=== PATIENT | female | born 1990 | race Caucasian/White ===

== ENCOUNTER → 2022-05-13 | Outpatient (CLI) | payer MEDICAID ==
--- NOTE | 2022-05-13 10:41 | Diagnostic Imaging Report ---
INDICATION: survey. TECHNIQUE: Multiple real-time grayscale images were obtained over the gravid uterus. COMPARISON: None FINDINGS: There is a single live fetus in transverse presentation, head to maternal right. heart rate was recorded at 158 bpm. Placenta is anterior and low lying with the tip of the placenta approximately 2.8 cm from the internal cervical os. Cervical length is 5.7 cm. kidneys, bladder and stomach are unremarkable. brain is unremarkable. There is a four-chamber heart. There is a three-vessel cord with normal insertion. spine evaluation is somewhat limited due to position. Biometrical measurements are as follows: Biparietal 4.53 cm, age 19 weeks 5 days. Head circumference 17.41 cm, age 20 weeks 0 days. Abdominal circumference 15.63 cm, age 20 weeks 6 days. Femur length 3.48 cm, age 21 weeks 0 days. Sonographic estimate age: 20 weeks 3 days. Sonographic estimated date of delivery: 09/27/2022. Estimated Weight: 374 gm (+/- 55 gm). LMP percentile: 85%. heart rate: 158 beats per minute. number: 1 of 1. IMPRESSION: 1. Single live IUP, 20 weeks 3 days gestational age. Estimated date of confinement sonographically is 09/27/2022. 2. Low-lying placenta. 3. Unremarkable survey although spine evaluation is somewhat limited due to position. Dictated by: Dictated on workstation # [id number]
== END ==
LOC: RAD FS 09:07
PROVIDERS: ATTEND Obstetrics & Gynecology
DX: O44.42 Low lying placenta NOS or without hemorrhage, second trimester (principal); Z36.9 Encounter for antenatal screening, unspecified; Z3A.20 20 weeks gestation of pregnancy
CPT/HCPCS: 76805

== ENCOUNTER 2022-08-02 20:36 | Outpatient (CLI) | payer MEDICAID ==
[~2022-08-02] VITALS: Ht 165.1 cm; Wt 92.6 kg
[2022-08-02 21:24] VITALS: BP 121/70
[2022-08-02 21:26] VITALS: BP 121/70
[2022-08-03] MEDS ORDERED: PREN1COM15 PO (01:52)
--- NOTE | 2022-08-03 08:40 | Physician Query-Final Dx ---
HECTOR,08/03/22 0840: Clinic Account Progress/Dx Physician Query: Please give diagnosis Please include # weeks gestation Date of Service Aug 02, 2022 at 20:36 SHIMON HALE MD 08/03/22 1923: Clinic Account Progress/Dx DIAGNOSIS: Diagnosis 32 weeks with false labor ,NovAug 03, 2022 08:40 SHIMON HALE MD Aug 03, 2022 19:23
== END 2022-08-03 02:00 | disposition home or self-care (01) ==
LOC: LDRP 20:36 → WSo 20:36
PROVIDERS: ATTEND Obstetrics & Gynecology
DX: O47.03 False labor before 37 completed weeks of gestation, third trimester (principal); Z3A.32 32 weeks gestation of pregnancy
CPT/HCPCS: 99213

== ENCOUNTER 2022-08-27 21:23 | Outpatient (CLI) | payer BC, MEDICAID ==
[~2022-08-27] VITALS: Ht 162.5 cm; Wt 95.2 kg
[~2022-08-27 21:23] MED LIST: PREN1COM15 PO
[2022-08-27] MEDS ORDERED: D5 LR IV SOLUTION 1,000 ML IV ONE (21:55)
[2022-08-27] MEDS ORDERED: D5 LR IV SOLUTION 1,000 ML IV SCH (22:00)
[2022-08-27 22:01] LABS: BILIRUBIN,URINE NEGATIVE (NEGATIVE); CLARITY,URINE CLEAR; COLOR,URINE YELLOW; GLUCOSE, URINE (UA) NEGATIVE (NEGATIVE); KETONES,URINE NEGATIVE (NEGATIVE); LEUKOCYTE ESTERASE ,URINE 3+ (NEGATIVE); NITRITE,URINE NEGATIVE (NEGATIVE); PROTEIN,URINE NEGATIVE (NEGATIVE)
[2022-08-27 22:09] VITALS: BP 133/69
[2022-08-27 22:14] LABS: BACTERIA,URINE FEW /HPF
--- NOTE | 2022-08-30 08:29 | Physician Query-Final Dx ---
,08/30/22 0829: Clinic Account Progress/Dx Physician Query: Please give diagnosis Please include # weeks gestation Date of Service Aug 27, 2022 at 21:23 SHIMON HALE MD 08/31/22 0759: Clinic Account Progress/Dx DIAGNOSIS: Diagnosis 35 weeks gestation with false labor ,NovAug 30, 2022 08:29 SHIMON HALE MD Aug 31, 2022 07:59
== END 2022-08-27 23:33 | disposition home or self-care (01) ==
LOC: LDRP 21:23 → WSo 21:23
PROVIDERS: ATTEND Obstetrics & Gynecology
DX: O62.9 Abnormality of forces of labor, unspecified (principal); Z3A.35 35 weeks gestation of pregnancy
CPT/HCPCS: 81000; 87077; 87088; 87186; 99213

== ENCOUNTER → 2022-09-02 | Outpatient (CLI) | payer BC, MEDICAID ==
--- NOTE | 2022-09-02 11:55 | Diagnostic Imaging Report ---
INDICATION: Abnormal glucose tolerance test. Biophysical profile was performed. There is a single live fetus in s cephalic presentation. heart rate was recorded at 156 bpm. Amniotic fluid index is 15.6 cm. Biophysical profile score is normal at 8 out of 8. IMPRESSION: Normal biophysical profile score 8 out of 8. Dictated by: Dictated on workstation # [id number]
== END ==
LOC: RAD FS 10:30
PROVIDERS: ATTEND Nurse Practitioner Women's Health
DX: O99.810 Abnormal glucose complicating pregnancy (principal); Z3A.00 Weeks of gestation of pregnancy not specified
CPT/HCPCS: 76819

== ENCOUNTER 2022-09-22 12:03 | Outpatient (CLI) | payer BC, MEDICAID ==
[~2022-09-22] VITALS: Ht 165.1 cm; Wt 95.5 kg
[2022-09-22 12:34] LABS: BILIRUBIN,URINE NEGATIVE (NEGATIVE); CLARITY,URINE CLEAR; COLOR,URINE YELLOW; GLUCOSE, URINE (UA) NEGATIVE (NEGATIVE); KETONES,URINE NEGATIVE (NEGATIVE); LEUKOCYTE ESTERASE ,URINE 3+ (NEGATIVE); NITRITE,URINE NEGATIVE (NEGATIVE); PROTEIN,URINE NEGATIVE (NEGATIVE)
[2022-09-22 12:45] LABS: RBC,URINE RARE /HPF
[2022-09-22 12:46] LABS: BACTERIA,URINE MODERATE /HPF; WBC,URINE 25-50 /HPF
[2022-09-22 13:15] VITALS: BP 140/91
[2022-09-22 13:32] VITALS: BP 128/78
--- NOTE | 2022-09-23 08:23 | Physician Query-Final Dx ---
HECTOR09/23/22 0823: Clinic Account Progress/Dx Physician Query: Please give diagnosis Please include # weeks gestation Date of Service Sep 22, 2022 at 12:03 VALERY RICHARDS DO 09/24/22 0721: Clinic Account Progress/Dx DIAGNOSIS: Diagnosis 38 week IUP, Irregular contractions vaginal discharge HECTOR,NovSep 23, 2022 08:23 VALERY RICHARDS DO Sep 24, 2022 07:21
== END 2022-09-22 13:45 | disposition home or self-care (01) ==
LOC: WSo 12:03 → LDRP 12:03 → WSo 13:45
PROVIDERS: ATTEND Obstetrics & Gynecology
DX: Z34.90 Encounter for supervision of normal pregnancy, unspecified, unspecified trimester (principal); Z3A.00 Weeks of gestation of pregnancy not specified
CPT/HCPCS: 81000; 87088; 99213

== ENCOUNTER 2022-09-29 18:52 | Inpatient (IN) | payer BC, MEDICAID ==
[~2022-09-29] VITALS: Ht 165.1 cm; Wt 95.0 kg
[2022-09-29 19:30] VITALS: BP 132/82
[2022-09-29] MEDS ORDERED: MINERAL OIL 30 ML UDC TOP PRN (19:30)
[2022-09-29] MEDS ORDERED: CATHETER FLUSH 10 ML SYR IV PRN (19:30)
[2022-09-29 20:02] LABS: BASOPHILS % (AUTO) 1 % (0-10); EOSINOPHILS # (AUTO) 0.2 10^3/uL (0.0-0.3); EOSINOPHILS % (AUTO) 3 % (0-10); HEMATOCRIT 32 % (35-52); HEMOGLOBIN 10.6 g/dL (11.5-16.0); LYMPHOCYTES # (AUTO) 1.6 10^3/uL (1.0-4.0); LYMPHOCYTES % (AUTO) 26 % (12-44); MEAN CORPUSCULAR HEMOGLOBIN 28 pg (25-34); MEAN CORPUSCULAR HGB CONC 33 g/dL (32-36); MEAN CORPUSCULAR VOLUME 85 fL (80-99); MEAN PLATELET VOLUME 9.5 fL (9.0-12.2); MONOCYTES # (AUTO) 0.4 10^3/uL (0.0-1.0); MONOCYTES % (AUTO) 7 % (0-12); NEUTROPHILS # (AUTO) 4.1 10^3/uL (1.8-7.8); NEUTROPHILS % (AUTO) 64 % (42-75); PLATELET COUNT 317 10^3/uL (130-400); WHITE BLOOD COUNT 6.4 10^3/uL (4.3-11.0)
[2022-09-29] MEDS: D5 LR IV SOLUTION 1,000 ML IV SCH ×2 (20:10→23:12)
[2022-09-29 21:00] VITALS: BP 130/83
[2022-09-29 22:27] LABS: BILIRUBIN,URINE NEGATIVE (NEGATIVE); CLARITY,URINE CLEAR; COLOR,URINE YELLOW; GLUCOSE, URINE (UA) NEGATIVE (NEGATIVE); KETONES,URINE NEGATIVE (NEGATIVE); LEUKOCYTE ESTERASE ,URINE 2+ (NEGATIVE); NITRITE,URINE NEGATIVE (NEGATIVE); PROTEIN,URINE NEGATIVE (NEGATIVE)
[2022-09-29 22:37] LABS: BACTERIA,URINE FEW /HPF
[2022-09-29 23:02] VITALS: BP 132/85
[2022-09-30] VITALS (55 sets, daily range): BP systolic 111–167; BP diastolic 58–99
[2022-09-30] MEDS: D5 LR IV SOLUTION 1,000 ML IV SCH ×3 (03:40→14:55)
[2022-09-30] MEDS ORDERED: HYDROmorphone 2 MG/ML VIAL (DILAUDID) ONE (05:27)
[2022-09-30] MEDS ORDERED: HYDROmorphone 2 MG/ML VIAL (DILAUDID) IV ONE (05:30)
--- NOTE | 2022-09-30 07:39 | History & Physical-OB ---
ALEJANDROCARROL 09/30/22 7:39am: OB - Chief Complaint & HPI Date/Time Date of Admission: Date of Admission: Sep 29, 2022 at 18:52 Date seen by a Provider: Sep 30, 2022 Time Seen by a Provider: 07:35 Chief Complaint/History OB-Reason for Admission/Chief: Induction of Labor Hx : 2 Hx Para: 1 Expected Date of Delivery: Sep 30, 2022 Gestational Age in Weeks: 39 Gestational Age in Days: 6 Other reason for admission: Scheduled induction 09/29/2022 Admission Nurse Assessment Rev: Yes History of Labs Laboratory Tests 09/29/22 19:45 Other Anyi Do, , presented to the ED w/ s/o for a scheduled induction last night at 7pm. Pt reports pain is well controlled and is able to ambulate w/o any issues. Urination and defecation without any issues. Pt reports having contractions every 3-5 minutes since this morning at 4:30am. Pt has had a few late decelerations, but over all the strip has been normal per nurse. Pt plans to get an Epidural. Pt labs report low Hb and Hct at 10.6 and 32% respectively. Allergies and Home Medications Allergies Coded Allergies: No Known Drug Allergies (Unverified , 08/02/22) Patient Home Medication List Home Medication List Reviewed: Yes Vit #105/Iron/FA/Dha (Prena1 True Combo Pack) 30 Mg Iron-1.4 Mg-300 Mg Combo..pkg, 1 EACH PO DAILY, (Reported) Entered as Reported by: DEVON SIDHU on 08/03/22 0152 Last Action: Last Taken Edited OB - History Hx of Present Care: Yes Obstetrical Complications: None Medical Complications: None Information Induced Hypertension: No Maternal Gestational Diabetes: No Hemorrhage: No Obstetrical History Hx : 2 Hx Para: 1 Hx # Term Pregnancies: 1 Hx # Pregnancies: 0 Number of Living Children: 1 Hx Induced Hypertens: Yes (Pt reports having blood pressure issues last ) Patient Past Medical History Pt reports having issues with HTN last . This pt report no HTN issues after starting baby Asprin. Pt currently is not taking baby Asprin. Social History/Family History Alcohol Use: Denies Use Recreational Drug Use: No Smoking Cessation: Never smoker 2nd Hand Smoke Exposure: No Immunizations Influenza Vaccine Up-to-Date: Yes; Up-to-Date Hepatitis B: Yes Rubella: immune RPR/VDRL: Negative GBS Status: Negative HBsAG: Negative OB - Admission Exam Physical Exam Vitals: Vital Signs 09/30/22 07:20 Temp 36.4 Pulse 80 Resp 18 B/P (MAP) 122/69 (86) Pulse Ox 100 O2 Delivery Room Air Heart: Rhythm Normal Lungs: Clear Abdomen: Gravid Extremities: Normal Reflexes: Normal Cervical Dilatation: 2cm Membranes: Intact Amniotic Fluid: Unevaluable Heart Rate: 140's Decelerations: Late Decelarations (Some late decelerations but over all the normal strip.) Contractions on Admission: None Frequency of Contractions: 3-5 minutes Intensity: Moderate Labs Laboratory Tests Test 09/29/22 19:26 09/29/22 19:45 Range/Units Urine Color YELLOW Urine Clarity CLEAR Urine pH 6.0 5-9 Urine Specific [place] <=1.005 1.016-1.022 Urine Protein NEGATIVE NEGATIVE Urine Glucose (UA) NEGATIVE NEGATIVE Urine Ketones NEGATIVE NEGATIVE Urine Nitrite NEGATIVE NEGATIVE Urine Bilirubin NEGATIVE NEGATIVE Urine Urobilinogen 0.2 < = 1.0 MG/DL Urine Leukocyte Esterase 2+ H NEGATIVE Urine RBC (Auto) NEGATIVE NEGATIVE Urine RBC NONE /HPF Urine WBC 5-10 H /HPF Urine Squamous Epithelial Cells 5-10 /HPF Urine Crystals NONE /LPF Urine Bacteria FEW H /HPF Urine Casts NONE /LPF Urine Mucus NEGATIVE /LPF Urine Culture Indicated YES White Blood Count 6.4 4.3-11.0 10^3/uL Red Blood Count 3.73 L 3.80-5.11 10^6/uL Hemoglobin 10.6 L 11.5-16.0 g/dL Hematocrit 32 L 35-52 % Mean Corpuscular Volume 85 80-99 fL Mean Corpuscular Hemoglobin 28 25-34 pg Mean Corpuscular Hemoglobin Concent 33 32-36 g/dL Red Cell Distribution Width 13.5 10.0-14.5 % Platelet Count 317 130-400 10^3/uL Mean Platelet Volume 9.5 9.0-12.2 fL Immature Granulocyte % (Auto) 1 % Neutrophils (%) (Auto) 64 42-75 % Lymphocytes (%) (Auto) 26 12-44 % Monocytes (%) (Auto) 7 0-12 % Eosinophils (%) (Auto) 3 0-10 % Basophils (%) (Auto) 1 0-10 % Neutrophils # (Auto) 4.1 1.8-7.8 10^3/uL Lymphocytes # (Auto) 1.6 1.0-4.0 10^3/uL Monocytes # (Auto) 0.4 0.0-1.0 10^3/uL Eosinophils # (Auto) 0.2 0.0-0.3 10^3/uL Basophils # (Auto) 0.0 0.0-0.1 10^3/uL Immature Granulocyte # (Auto) 0.0 0.0-0.1 10^3/uL OB - Assessment/Plan/Diagnosis Assessment Assessment: induction of labor Admission Dx Scheduled Induction for 09/29/2022 Admission Status: Observation Plan Plan: Induction WILLIE CESAR DO 09/30/22 10:40am: Allergies and Home Medications Allergies Coded Allergies: No Known Drug Allergies (Unverified , 08/02/22) Patient Home Medication List Vit #105/Iron/FA/Dha (Prena1 True Combo Pack) 30 Mg Iron-1.4 Mg-300 Mg Combo..pkg, 1 EACH PO DAILY, (Reported) Entered as Reported by: DEVON SIDHU on 08/03/22 0152 Last Action: Last Taken Edited OB - Assessment/Plan/Diagnosis Plan Other Plan IOL at 39 weeks GBS neg Addendum, no late decelerations noted overnight, occasion baseline variation and variable decel. Verification and Attestation of Medical Student E/M Service A medical student performed and documented this service in my presence. I revie wed and verified all information documented by the medical student and made modifications to such information, when appropriate. I personally performed the physical exam and medical decision making. Willie Cesar, Sep 30, 2022,10:40 CARROL ALLEN Sep 30, 2022 7:39 am WILLIE CESAR DO Sep 30, 2022 10:40 am
[2022-09-30] MEDS ORDERED: LACTATED RINGERS 1,000 ML IV SCH (08:30)
[2022-09-30] MEDS ORDERED: OXYTOCIN PRE-MIX DRIP 500 ML IV ONE (08:58)
[2022-09-30] MEDS ORDERED: fentaNYL 2 mcg/ml BUPIVA 0.125 100 ML ONE (08:58)
[2022-09-30] MEDS ORDERED: fentaNYL INJ 100 MCG/2 ML AMP ONE (09:24)
[2022-09-30] MEDS ORDERED: BUPIVACAINE 0.25% 30 ML (SENSORCAINE) VIAL ONE (09:24)
[2022-09-30] MEDS ORDERED: LIDOCAINE 1% INJ 20 ML VIAL ONE (09:51)
[2022-09-30] MEDS ORDERED: OXYTOCIN PRE-MIX DRIP 500 ML IV SCH (12:45)
[2022-09-30] MEDS ORDERED: LIDOCAINE 1% INJ 20 ML VIAL IJ PRN (12:45)
[2022-09-30] MEDS ORDERED: LIDOCAINE PF 2% 5 ML (XYLOCAINE) VIAL ONE (14:02)
[2022-09-30] MEDS ORDERED: ONDANSETRON 4 MG/2 ML (SDV) Z0FRAN IV PRN (14:45)
[2022-09-30] MEDS ORDERED: NALOXONE 0.4 MG/ML 1 ML (NARCAN) VIAL IV PRN ×2 (14:45→16:30)
[2022-09-30] MEDS ORDERED: fentaNYL 2 mcg/ml BUPIVA 0.125 100 ML IV SCH (14:45)
[2022-09-30] MEDS ORDERED: CATHETER FLUSH 10 ML SYR IV PRN (14:45)
[2022-09-30] MEDS ORDERED: diphenhydrAMINE 50 MG/ML INJ (BENADRYL) IV PRN (14:45)
[2022-09-30] MEDS ORDERED: LACTATED RINGERS 1,000 ML IV ONE (14:45)
[2022-09-30] MEDS ORDERED: HYDROcodone/APAP 5 MG/325 MG (LORTAB) TAB PO PRN (16:30)
[2022-09-30] MEDS ORDERED: MEASLES,MUMPS,RUBELLA 1 EA INJ SQ ONE (16:30)
[2022-09-30] MEDS ORDERED: TETANUS,DIPTH,PERTUSS P/F (BOOSTRIX) 0.5 ML VIAL IM ONE (16:30)
--- NOTE | 2022-09-30 16:35 | OB Labor & Delivery Record ---
L&D History Date of Service Date of Service: Sep 30, 2022 History Expected Date of Delivery: Sep 30, 2022 Gestational Age in Weeks: 39 Hx : 2 Hx Para: 1 Complications Events: Routine care Operative Indications (Cesarea: N/A-Vaginal Delivery Intrapartal Events: None L&D Stage1 Stage One Onset of Labor - Date: Sep 30, 2022 Monitors and Tracing Monitor Mode: Internal Heart Rate: 135 Monitor Accelerations: Uniform Monitor Decelerations: Variable Station: -1 Halfway Variability: Average (6-10) Short Term Variability: Present Presentation: Vertex Vital Signs VS - Last 72 Hours, by Label 09/29/22 09/29/22 09/29/22 09/30/22 19:30 21:00 23:02 00:03 Temp 36.8 36.7 36.5 36.4 Pulse 85 78 85 76 Resp 18 18 18 18 B/P (MAP) 130/83 (99) 132/85 (101) 131/84 (100) Pulse Ox 98 O2 Delivery Room Air Room Air 09/30/22 09/30/22 09/30/22 09/30/22 01:30 05:14 07:20 08:00 Temp 36.9 36.3 36.4 Pulse 73 77 80 78 Resp 18 18 18 18 B/P (MAP) 120/68 (85) 134/84 (101) 122/69 (86) 133/86 (102) Pulse Ox 100 100 O2 Delivery Room Air Room Air Room Air Room Air 09/30/22 09/30/22 09/30/22 09/30/22 08:30 09:00 09:30 10:00 Temp 36.6 Pulse 75 80 77 86 Resp 18 18 18 18 B/P (MAP) 137/83 (101) 133/83 (100) 140/86 (104) 165/95 (118) Pulse Ox 100 100 100 100 O2 Delivery Room Air Room Air Room Air Room Air Rupture of Membranes Spontaneous Ruture of Membrane: No Amniotic Membrane Rupture Time: 0804 Amniotic Membrane Fluid Desc.: Clear Vaginal Bleeding Description: Normal Show Progress/Notes Patient admitted for IOL at 39 weeks last night. Misoprostol given overnight. AROM done this morning and pitocin started due to dysfunctional labor pattern after epidural was placed. She progressed to complete and + 2 station. L&D Stage2 Stage Two Stage II Date: Sep 30, 2022 Monitors and Tracing Monitor Mode: Internal Heart Rate: 135 Monitor Accelerations: Uniform Monitor Decelerations: Variable Soundscriber Mechanic Variability: Average (6-10) Short Term Variability: Present Position: Right Occiput Anterior Presentation: Vertex Cord Descript/Complications Cord Vessel Description: 3 Vessels Delivery Type Delivery Method: Spontaneous Vaginal Anterior Shoulder: Left Episiotomy/Perineal Laceration Laceraction(s)/Extensions: Yes Episiotomy Description: Periurethral Extnsion/lac, Perineal Extension/lac, 2nd degree Degree (describe repair) lacerations repaired using 3-0 vicryl suture in usual fashion. Condition of Delivery 1 minute Comment: 8 5 minute Comment: 9 Notes live male infant weight 7lbs 8 oz Condition of Condition of : Living Exam: No Observed Abnormalities Resuscitation Resuscitation: N/A - Spontaneous Resp L&D Stage3 Stage Three Stage III Date: Sep 30, 2022 Pictocin Pitocin Administration Comment: 30 mu wide open after delivery of placenta Placenta Delivery Placenta Delivery: Spontaneous Delivery Summary Summary Estimated blood loss (mL): 350 Attending at delivery: Valery Richards DO Condition of Delivery Examined: Cervix Examined, Uterus Explored Post Hemorrhage: No Condition of Mother stable Condition of Infant (s) stable VALERY RICHARDS DO Sep 30, 2022 16:35
[2022-09-30] MEDS ORDERED: IBUPROFEN 600 MG (MOTRIN) TAB PO ONE (16:40)
[2022-09-30] MEDS: IBUPROFEN 600 MG (MOTRIN) TAB PO SCH ×2 (16:41→22:48)
[2022-09-30] MEDS: OXYTOCIN PRE-MIX DRIP 500 ML IV SCH (16:53)
[2022-09-30] MEDS: DIBUCAINE 1% OINTMENT 30 GM TUBE TOP PRN (18:51)
[2022-09-30] MEDS: WITCH HAZEL(TUCKS) 40 EA JAR TOP PRN (18:51)
[2022-09-30] MEDS: BENZOCAINE/MENTHOL (DERMOPLAST) 56 ML CAN TP PRN (18:51)
[2022-09-30] MEDS: CATHETER FLUSH 10 ML SYR IV SCH (22:00)
[2022-09-30] MEDS: DOCUSATE SODIUM 100 MG (COLACE) CAP PO SCH (22:00)
[2022-10-01 02:15] VITALS: BP 116/64
[2022-10-01 05:59] LABS: BASOPHILS % (AUTO) 0 % (0-10); EOSINOPHILS # (AUTO) 0.1 10^3/uL (0.0-0.3); EOSINOPHILS % (AUTO) 1 % (0-10); HEMATOCRIT 29 % (35-52); HEMOGLOBIN 9.4 g/dL (11.5-16.0); LYMPHOCYTES # (AUTO) 1.8 10^3/uL (1.0-4.0); LYMPHOCYTES % (AUTO) 15 % (12-44); MEAN CORPUSCULAR HEMOGLOBIN 28 pg (25-34); MEAN CORPUSCULAR HGB CONC 33 g/dL (32-36); MEAN CORPUSCULAR VOLUME 86 fL (80-99); MEAN PLATELET VOLUME 9.6 fL (9.0-12.2); MONOCYTES # (AUTO) 0.7 10^3/uL (0.0-1.0); MONOCYTES % (AUTO) 6 % (0-12); NEUTROPHILS # (AUTO) 9.5 10^3/uL (1.8-7.8); NEUTROPHILS % (AUTO) 78 % (42-75); PLATELET COUNT 296 10^3/uL (130-400); WHITE BLOOD COUNT 12.1 10^3/uL (4.3-11.0)
[2022-10-01] MEDS: CATHETER FLUSH 10 ML SYR IV SCH ×2 (06:18→14:00)
[2022-10-01] MEDS: IBUPROFEN 600 MG (MOTRIN) TAB PO SCH ×2 (06:18→13:54)
[2022-10-01 06:31] VITALS: BP 126/77
[2022-10-01] MEDS ORDERED: PRENATAL VITAMIN 1 EA TAB PO SCH (07:00)
--- NOTE | 2022-10-01 08:07 | Postpartum Progress Note ---
CARROL ALLEN 10/01/22 0807: Note Note Day # 1 Subjective: Anyi Do is a pt that was induced 09/29/22 at 7pm. Labor and delivery progressed without complications other than clitoral laceration and 2nd degree submucosal laceration. Patient is without complaints. Pt doesn't have difficulty with urination, but has not had BM. Pt reports passing gas. Pt has an appetite and stated has ordered breakfast this morning. Normal lochia. Pain is well controlled with oral pain medications. Pt is currently breast feeding without difficulty. Objective: During interview pt was in good spirit and sitting up in bed. Pt labs have been relatively stable compared to labs drawn 09/29/22. WBC is trending upwards from 6.4 to 12.1. Pt currently has not physical signs of infection. Laboratory Tests 10/01/22 05:28 Laboratory Tests 09/29/22 19:26: Urine Leukocyte Esterase 2+H, Urine WBC 5-10H, Urine Bacteria FEWH 09/29/22 19:45: Red Blood Count 3.73L, Hemoglobin 10.6L, Hematocrit 32L 10/01/22 05:28: Red Blood Count 3.33L, Hemoglobin 9.4L, Hematocrit 29L, White Blood Count 12.1H, Neutrophils (%) (Auto) 78H, Neutrophils # (Auto) 9.5H Physical Exam: General - Alert and oriented, no apparent distress Heart: RRR; no m/r/g Lungs: CTAB Abdomen - Soft, appropriately tender to palpation, non-distended, fundus firm at umbilicus Extremities - no edema, negative Lev's bilaterally Assessment: post- day # 1, status post vaginal delivery. Recovering well, hemodynamically stable Plan: Routine care. Encourage breast feeding. Encourage ambulation. Ferrous sulfate supplementation. Plan for discharge 10/01/22 Vitals - Labs Vital Signs - I&O Vital Signs Date Time Temp Pulse Resp B/P (MAP) Pulse Ox O2 Delivery O2 Flow Rate FiO2 10/01/22 06:31 36.1 88 16 126/77 (93) 99 Room Air 10/01/22 02:15 36.3 81 16 116/64 (81) 96 Room Air 09/30/22 22:00 36.8 89 16 129/75 (93) 98 Room Air 09/30/22 21:00 98 Room Air 09/30/22 18:15 111 18 139/63 (88) Room Air 09/30/22 18:00 36.9 104 18 148/73 (98) Room Air 09/30/22 17:41 98 18 140/66 (90) Room Air 09/30/22 17:30 97 18 135/66 (89) Room Air 09/30/22 17:11 96 18 143/79 (100) Room Air 09/30/22 16:56 93 18 133/73 (93) Room Air 09/30/22 16:41 105 18 127/67 (87) Room Air 09/30/22 16:29 131 18 128/58 (81) Room Air 09/30/22 16:15 127 18 139/71 (93) 100 Room Air 09/30/22 16:00 114 20 167/92 (117) Non Rebreather 15.00 09/30/22 15:45 36.8 93 20 149/71 (97) Non Rebreather 15.00 09/30/22 15:30 97 18 162/75 (104) Non Rebreather 15.00 09/30/22 15:15 91 18 142/78 (99) 98 Non Rebreather 15.00 09/30/22 15:00 104 18 145/80 (101) 100 Non Rebreather 15.00 09/30/22 14:45 109 18 123/80 (94) 99 Non Rebreather 15.00 09/30/22 14:30 83 18 111/69 (83) 100 Non Rebreather 15.00 09/30/22 14:15 86 18 131/69 (89) 100 Non Rebreather 15.00 09/30/22 14:00 36.8 83 18 135/65 (88) 100 Non Rebreather 15.00 09/30/22 13:45 82 18 129/66 (87) 100 Non Rebreather 15.00 09/30/22 13:30 84 18 130/60 (83) 100 Non Rebreather 15.00 09/30/22 13:15 85 18 141/78 (99) 100 Non Rebreather 15.00 09/30/22 13:00 36.9 77 18 131/82 (98) Room Air 09/30/22 12:45 71 18 123/78 (93) Room Air 09/30/22 12:30 83 18 132/78 (96) Room Air 09/30/22 12:15 77 18 144/81 (102) Room Air 09/30/22 12:00 36.6 79 18 134/81 (98) 100 Room Air 09/30/22 11:45 77 18 128/78 (95) 100 Room Air 09/30/22 11:30 68 18 130/77 (94) 100 Room Air 09/30/22 11:15 77 18 127/74 (91) 100 Room Air 09/30/22 11:00 36.7 83 18 136/81 (99) 100 Room Air 09/30/22 10:54 77 18 125/76 (92) 100 Room Air 09/30/22 10:51 87 18 125/75 (92) 100 Room Air 09/30/22 10:48 82 18 130/78 (95) 100 Room Air 09/30/22 10:45 81 18 128/76 (93) 100 Room Air 09/30/22 10:43 80 18 135/99 (111) 100 Room Air 09/30/22 10:39 85 18 127/78 (94) 99 Room Air 09/30/22 10:36 84 18 132/82 (99) 98 Room Air 09/30/22 10:33 77 18 125/73 (90) 98 Room Air 09/30/22 10:30 36.5 77 18 136/85 (102) 100 Room Air 09/30/22 10:28 81 18 132/83 (99) 100 Room Air 09/30/22 10:25 87 18 136/83 (100) 100 Room Air 09/30/22 10:22 82 18 148/82 (104) 100 Room Air 09/30/22 10:19 83 18 140/90 (107) 100 Room Air 09/30/22 10:00 86 18 165/95 (118) 100 Room Air 09/30/22 09:47 86 18 137/90 (106) 100 Room Air 09/30/22 09:30 77 18 140/86 (104) 100 Room Air 09/30/22 09:19 80 18 139/85 (103) 100 Room Air 09/30/22 09:00 36.6 80 18 133/83 (100) 100 Room Air 09/30/22 08:30 75 18 137/83 (101) 100 Room Air I & O 10/01/22 07:00 Intake Total 4000 ml Balance 4000 ml Labs Laboratory Tests 10/01/22 05:28: White Blood Count 12.1H, Red Blood Count 3.33L, Hemoglobin 9.4L, Hematocrit 29L, Mean Corpuscular Volume 86, Mean Corpuscular Hemoglobin 28, Mean Corpuscular Hemoglobin Concent 33, Red Cell Distribution Width 13.7, Platelet Count 296, Mean Platelet Volume 9.6, Immature Granulocyte % (Auto) 0, Neutrophils (%) (Auto) 78H, Lymphocytes (%) (Auto) 15, Monocytes (%) (Auto) 6, Eosinophils (%) (Auto) 1, Basophils (%) (Auto) 0, Neutrophils # (Auto) 9.5H, Lymphocytes # (Auto) 1.8, Monocytes # (Auto) 0.7, Eosinophils # (Auto) 0.1, Basophils # (Auto) 0.0, Immature Granulocyte # (Auto) 0.1 Microbiology 09/29/22 Urine Culture - Preliminary, Resulted NO GROWTH WILLIE RICHARDS DO 10/01/22 0931: Note Note Diagnosis addendum: Acute blood loss anemia Verification and Attestation of Medical Student E/M Service A medical student performed and documented this service in my presence. I reviewed and verified all information documented by the medical student and made modifications to such information, when appropriate. I personally performed the physical exam and medical decision making. Willie Richards Oct 01, 2022,09:31 CARROL ALLEN Oct 01, 2022 08:07 WILLIE RICHARDS DO Oct 01, 2022 09:31
[2022-10-01 08:55] VITALS: BP 121/70
[2022-10-01] MEDS: DOCUSATE SODIUM 100 MG (COLACE) CAP PO SCH (08:56)
[2022-10-01] MEDS: BENZOCAINE/MENTHOL (DERMOPLAST) 56 ML CAN TP PRN (08:57)
[2022-10-01] MEDS: WITCH HAZEL(TUCKS) 40 EA JAR TOP PRN (08:57)
[2022-10-01] MEDS: DIBUCAINE 1% OINTMENT 30 GM TUBE TOP PRN (08:57)
[2022-10-01] MEDS ORDERED: FERROUS SULF 325 MG (IRON) TAB PO SCH (09:00)
[2022-10-01] MEDS ORDERED: DIBU30OI TOP (09:16)
[2022-10-01] MEDS ORDERED: DOCU100C37 PO (09:16)
[2022-10-01] MEDS ORDERED: FERR325T24 PO (09:16)
[2022-10-01] MEDS ORDERED: BENZ78AE5 TP (09:16)
[2022-10-01] MEDS ORDERED: IBUP-844 PO (09:16)
[2022-10-01] MEDS ORDERED: WTCHGPD TOP (09:16)
[2022-10-01] MEDS ORDERED: ACHD5005 PO (09:16)
--- NOTE | 2022-10-01 09:17 | Discharge Inst-Women's Service ---
Discharge Inst-Women's Serv Depart Medication/Instructions New, Converted or Re-Newed RX: Transmitted to Pharmacy Consults/Follow Up Additional Follow Up: Yes (6wk appt) Activity Activity: Activity as Tolerated Driving Instructions: No Driving for 1 Week NO SMOKING: NO SMOKING Nothing Inside Vagina: No Douching, No [place], No Tampons Diet Discharge Diet: No Restrictions Symptoms to Report to : Pain Increased, Fever Over 101 Degrees F, Vaginal Bleeding Increase For Any Problems or Questions: Contact Your Physician JEFFERY SYKES APRN Oct 01, 2022 09:17
[2022-10-01 13:55] VITALS: BP 134/75
--- NOTE | 2022-10-01 14:52 | Anesthesia-Regional Post-Op ---
Regional Patient Condition Mental Status: Alert, Oriented x3 Circulation: Same as Pre-Op Headache: Absent Sensation: Full Recovery Motor Block: Absent Post Op Complications Complications None Follow Up Care/Instructions Patient Instructions None needed. Anesthesia/Patient Condition Patient is doing well, no complaints, stable vital signs, no apparent adverse anesthesia problems. No complications reported per nursing. CURTIS NASSAR DO Oct 01, 2022 14:51
== END 2022-10-01 18:55 | disposition home or self-care (01) | DRG 806 ==
LOC: LDRP 18:52
PROVIDERS: ADMIT Obstetrics & Gynecology; ATTEND Obstetrics & Gynecology
PROC: 10E0XZZ Delivery of Products of Conception, External Approach (ICD-10-PCS; principal; 2022-09-30)
PROC: 0KQM0ZZ Repair Perineum Muscle, Open Approach (ICD-10-PCS; 2022-09-30)
PROC: 10907ZC Drainage of Amniotic Fluid, Therapeutic from Products of Conception, Via Natural or Artificial Opening (ICD-10-PCS; 2022-09-30)
PROC: 3E033VJ Introduction of Other Hormone into Peripheral Vein, Percutaneous Approach (ICD-10-PCS; 2022-09-30)
DX: O70.1 Second degree perineal laceration during delivery (principal); D62 Acute posthemorrhagic anemia; Z37.0 Single live birth; Z3A.39 39 weeks gestation of pregnancy; O90.81 Anemia of the puerperium
CPT/HCPCS: 36415; 81000; 85025; 86780; 86850; 86900; 86901; 87088